=== PATIENT | male | born 1965 | race Hispanic/Latino ===

== ENCOUNTER 2021-10-09 07:32 | Inpatient (IN) | payer SELFPAY ==
[2021-10-09] MEDS ORDERED: niCARdipine 25 MG/10 ML VIAL ONE (07:39)
[2021-10-09 08:03] LABS: #Eosinphils 0.3 thou/uL (0.0-0.7); #Lymphocytes 1.8 thou/uL (1.20-3.40); #Monocytes 0.6 thou/uL (0.11-0.59); %Eosinophils 3.9 % (0.0-10.0); %Lymphocytes 23.8 % (21.0-51.0); %Monocytes 7.3 % (0.0-10.0); Hemoglobin 14.3 g/dL (14.0-18.0); Mean Corpuscular HGB CONC 33.7 g/dL (32.0-36.0); Mean Corpuscular Hemoglobin 29.8 pg (27.0-31.0); Mean Corpuscular Volume 88.4 fL (78.0-98.0); Mean Platelet Volume 6.9 fL (7.4-10.4); Platelet Count 294 thou/uL (130-400); RBC Distribution Width 13.4 % (11.5-14.5); White Blood Cell (WBC) Count 7.6 thou/uL (4.8-10.8)
[2021-10-09 08:15] LABS: PTT 29.4 sec (22.9-36.1)
[2021-10-09 08:18] LABS: ALT (SGPT) 88 U/L (8-55); AST (SGOT) 69 U/L (5-34); Albumin 4.1 g/dL (3.5-5.0); Alkaline Phosphatase 134 U/L (40-110); Anion Gap 15 mmol/L (10-20); BUN (Urea Nitrogen) 14 mg/dL (8.4-25.7); Bilirubin, Total 0.7 mg/dL (0.2-1.2); Calc. Creatinine Clearance 0 mL/min (70-130); Carbon Dioxide 25 mmol/L (22-29); Chloride 101 mmol/L (98-107); Estimated GFR 77; Globulin 3.4 g/dL (2.4-3.5); Glucose 141 mg/dL (70-105); Potassium 3.3 mmol/L (3.5-5.1); Protein, Total 7.5 g/dL (6.0-8.3); Sodium 138 mmol/L (136-145)
[2021-10-09 08:47] LABS: CKMB 2.6 ng/mL (0-6.6)
[2021-10-09] MEDS ORDERED: Labetalol HCl 100 MG/20 ML VIAL SLOW IVP PRN (09:46)
[2021-10-09] MEDS ORDERED: Acetaminophen 650 MG Suppository PR PRN (09:46)
[2021-10-09] MEDS ORDERED: Senokot S 8.6-50 MG TAB PO PRN (09:46)
[2021-10-09] MEDS ORDERED: Dextrose 5% in Water 1,000 ML IV PRN (09:46)
[2021-10-09] MEDS ORDERED: Ondansetron PF 4 MG/2 ML Vial IVP PRN (09:46)
[2021-10-09] MEDS ORDERED: Dextrose 50% Abboject 50 ML SYRINGE SLOW IVP PRN (09:46)
[2021-10-09] MEDS: niCARdipine 25 MG in Sodium Chloride 0.9% 250 ML 250 ML IVPB PRN ×2 (11:42→13:55)
[2021-10-09] MEDS ORDERED: Pantoprazole 40 MG VIAL IVP SCH (11:45)
[2021-10-09 11:58] LABS: Critical Call Chem Troponin I RESULT DECREASING
[2021-10-09 11:59] LABS: Troponin I 0.481 ng/mL (< 0.028)
[2021-10-09] MEDS: HumaLOG 300 UNITS/3 ML VIAL SC PRN ×2 (12:00→17:58)
[2021-10-09 13:20] LABS: Hemoglobin A1c 6.3 % (4.0-6.0)
[2021-10-09] MEDS: Labetalol HCl 100 MG/20 ML VIAL SLOW IVP PRN (14:40)
[2021-10-09 14:44] LABS: Critical Call Chem Troponin I RESULT DECREASING; Troponin I 0.473 ng/mL (< 0.028)
[2021-10-09] MEDS: niCARdipine 50 MG in Sodium Chloride 0.9% 250 ML 230 ML IVPB PRN ×3 (15:31→21:43)
[2021-10-09] MEDS: Morphine 2 MG/ML VIAL SLOW IVP PRN (15:44)
[2021-10-09] MEDS ORDERED: Electrolyte Replacement Protocol FS PRN (15:45)
[2021-10-09 15:46] LABS: Anion Gap 18 mmol/L (10-20); Carbon Dioxide 23 mmol/L (22-29); Chloride 102 mmol/L (98-107); Potassium 3.8 mmol/L (3.5-5.1); Sodium 139 mmol/L (136-145)
[2021-10-09] MEDS: Potassium Chloride 20 MEQ in Premix Bag 1 BAG IVPB SCH ×2 (16:30→17:59)
[2021-10-09] MEDS: Pantoprazole 40 MG VIAL IVP SCH (21:07)
[2021-10-10] MEDS: niCARdipine 50 MG in Sodium Chloride 0.9% 250 ML 230 ML IVPB PRN ×6 (02:25→21:05)
[2021-10-10 04:10] LABS: #Eosinphils 0.2 thou/uL (0.0-0.7); #Lymphocytes 1.6 thou/uL (1.20-3.40); #Monocytes 0.6 thou/uL (0.11-0.59); #Neutrophils 8.9 thou/uL (1.40-6.50); %Basophils 0.2 % (0.0-1.0); %Eosinophils 1.4 % (0.0-10.0); %Lymphocytes 14.3 % (21.0-51.0); %Monocytes 5.2 % (0.0-10.0); Hemoglobin 12.5 g/dL (14.0-18.0); Mean Corpuscular HGB CONC 34.1 g/dL (32.0-36.0); Mean Corpuscular Hemoglobin 30.2 pg (27.0-31.0); Mean Corpuscular Volume 88.8 fL (78.0-98.0); Platelet Count 294 thou/uL (130-400); RBC Distribution Width 13.4 % (11.5-14.5); Red Blood Cell (RBC) Count 4.14 mill/uL (4.70-6.10); White Blood Cell (WBC) Count 11.3 thou/uL (4.8-10.8)
[2021-10-10 04:36] LABS: ALT (SGPT) 72 U/L (8-55); AST (SGOT) 49 U/L (5-34); Albumin 3.7 g/dL (3.5-5.0); Alkaline Phosphatase 111 U/L (40-110); Anion Gap 16 mmol/L (10-20); BUN (Urea Nitrogen) 20 mg/dL (8.4-25.7); Bilirubin, Total 0.6 mg/dL (0.2-1.2); Calc. Creatinine Clearance 137 mL/min (70-130); Calcium 8.7 mg/dL (7.8-10.44); Carbon Dioxide 22 mmol/L (22-29); Cardiac Risk 5.1 (Less than 4.5); Chloride 105 mmol/L (98-107); Cholesterol 178 mg/dl (< 200 Desired); Estimated GFR 77; Globulin 3.1 g/dL (2.4-3.5); Glucose 124 mg/dL (70-105); HDL Cholesterol 35 mg/dL (>60 Neg Risk); LDL Cholesterol, Calculated 120 mg/dL; Potassium 3.3 mmol/L (3.5-5.1); Protein, Total 6.8 g/dL (6.0-8.3); Sodium 140 mmol/L (136-145); Triglycerides 114 mg/dL (Less than 150)
[2021-10-10 05:47] LABS: Magnesium 1.9 mg/dL (1.6-2.6)
[2021-10-10] MEDS ORDERED: Magnesium 2 GM/50 ML(in water) 2 GM in Premix Bag 1 BAG IVPB SCH (08:00)
[2021-10-10] MEDS: Potassium Chloride 20 MEQ in Premix Bag 1 BAG IVPB SCH ×2 (08:13→10:27)
[2021-10-10] MEDS ORDERED: Prevnar 13-Val Conj/PF 0.5 ML SYRINGE IM ONE (09:00)
[2021-10-10] MEDS: Pantoprazole 40 MG VIAL IVP SCH ×2 (09:33→20:35)
[2021-10-10] MEDS ORDERED: Iopamidol-370 76% 500 ML 1 ML ONE (11:29)
[2021-10-10] MEDS: Acetaminophen 325 MG TAB PO PRN (18:02)
[2021-10-10] MEDS: Labetalol HCl 100 MG/20 ML VIAL SLOW IVP PRN (20:35)
[2021-10-11] MEDS: Labetalol HCl 100 MG/20 ML VIAL SLOW IVP PRN ×3 (00:23→21:45)
[2021-10-11] MEDS: niCARdipine 50 MG in Sodium Chloride 0.9% 250 ML 230 ML IVPB PRN ×5 (01:02→22:57)
[2021-10-11 03:48] LABS: #Eosinphils 0.1 thou/uL (0.0-0.7); #Monocytes 0.7 thou/uL (0.11-0.59); #Neutrophils 11.8 thou/uL (1.40-6.50); %Basophils 0.2 % (0.0-1.0); %Eosinophils 0.9 % (0.0-10.0); %Lymphocytes 7.5 % (21.0-51.0); %Monocytes 4.9 % (0.0-10.0); %Neutrophils 86.5 % (42.0-75.0); Hemoglobin 13.3 g/dL (14.0-18.0); Mean Corpuscular HGB CONC 33.6 g/dL (32.0-36.0); Mean Corpuscular Hemoglobin 29.8 pg (27.0-31.0); Mean Corpuscular Volume 88.6 fL (78.0-98.0); Mean Platelet Volume 6.9 fL (7.4-10.4); Platelet Count 320 thou/uL (130-400); RBC Distribution Width 13.5 % (11.5-14.5); Red Blood Cell (RBC) Count 4.46 mill/uL (4.70-6.10); White Blood Cell (WBC) Count 13.6 thou/uL (4.8-10.8)
[2021-10-11 04:08] LABS: Anion Gap 14 mmol/L (10-20); BUN (Urea Nitrogen) 20 mg/dL (8.4-25.7); Calc. Creatinine Clearance 123 mL/min (70-130); Calcium 8.9 mg/dL (7.8-10.44); Carbon Dioxide 21 mmol/L (22-29); Chloride 106 mmol/L (98-107); Estimated GFR 67; Glucose 167 mg/dL (70-105); Magnesium 2.4 mg/dL (1.6-2.6); Potassium 4.2 mmol/L (3.5-5.1); Sodium 137 mmol/L (136-145)
[2021-10-11] MEDS: Carvedilol 6.25 MG TAB PO SCH ×2 (08:11→16:24)
[2021-10-11] MEDS: Pantoprazole 40 MG VIAL IVP SCH ×2 (08:16→20:55)
[2021-10-11] MEDS: Amlodipine 10 MG TAB PO SCH (12:19)
[2021-10-11] MEDS: hydrALAZINE 20 MG/ML VIAL SLOW IVP PRN (16:22)
[2021-10-11] MEDS: Atorvastatin Calcium 40 MG TAB PO SCH (20:55)
[2021-10-12 04:17] LABS: Anion Gap 15 mmol/L (10-20); BUN (Urea Nitrogen) 29 mg/dL (8.4-25.7); Calc. Creatinine Clearance 0 mL/min (70-130); Calcium 8.7 mg/dL (7.8-10.44); Carbon Dioxide 20 mmol/L (22-29); Chloride 106 mmol/L (98-107); Estimated GFR 59; Glucose 133 mg/dL (70-105); Magnesium 2.3 mg/dL (1.6-2.6); Potassium 4.1 mmol/L (3.5-5.1); Sodium 137 mmol/L (136-145)
[2021-10-12] MEDS: niCARdipine 50 MG in Sodium Chloride 0.9% 250 ML 230 ML IVPB PRN ×3 (04:20→19:10)
[2021-10-12] MEDS: Morphine 2 MG/ML VIAL SLOW IVP PRN (04:48)
[2021-10-12] MEDS: Amlodipine 10 MG TAB PO SCH (07:36)
[2021-10-12] MEDS: Pantoprazole 40 MG VIAL IVP SCH ×2 (07:36→20:15)
[2021-10-12] MEDS: Carvedilol 6.25 MG TAB PO SCH ×2 (07:36→18:03)
[2021-10-12] MEDS ORDERED: Carvedilol 6.25 MG TAB PO SCH ×2 (08:00→08:45)
[2021-10-12] MEDS: Labetalol HCl 100 MG/20 ML VIAL SLOW IVP PRN ×4 (08:07→18:17)
[2021-10-12 15:02] LABS: Bacteria/HPF None Seen HPF (None Seen); Bilirubin Negative (Negative); Blood, Urine Negative (Negative); Clarity Clear (Clear); Glucose, Urine (Dipstick) Normal (Negative); Ketone, Urine Negative (Negative); Leukocyte Negative Leu/uL (Negative); Nitrite Negative (Negative); Protein, Urine (Dipstick) 10 mg/dL (Neg-Trace); RBC/HPF 0-3 HPF (0-3); Specific Gravity, Urine 1.026 (1.002-1.036); WBC/HPF 0-3 HPF (0-3); pH, Urine 5.5 (5.0-9.0)
[2021-10-12] MEDS: Atorvastatin Calcium 40 MG TAB PO SCH (20:15)
[2021-10-13] MEDS: niCARdipine 50 MG in Sodium Chloride 0.9% 250 ML 230 ML IVPB PRN ×2 (02:11→07:24)
[2021-10-13] MEDS: Pantoprazole 40 MG VIAL IVP SCH ×2 (07:24→20:32)
[2021-10-13] MEDS: Carvedilol 6.25 MG TAB PO SCH (07:25)
[2021-10-13] MEDS: Amlodipine 10 MG TAB PO SCH (07:25)
[2021-10-13] MEDS: Labetalol HCl 100 MG/20 ML VIAL SLOW IVP PRN ×3 (07:30→14:20)
[2021-10-13] MEDS: hydrALAZINE 25 MG TAB PO SCH ×3 (08:34→20:32)
[2021-10-13] MEDS ORDERED: Furosemide 40 MG/4 ML VIAL SLOW IVP SCH (09:45)
[2021-10-13 11:08] LABS: Phosphorus 3.6 mg/dL (2.3-4.7)
[2021-10-13 11:11] LABS: Anion Gap 13 mmol/L (10-20); BUN (Urea Nitrogen) 32 mg/dL (8.4-25.7); Calc. Creatinine Clearance 123 mL/min (70-130); Calcium 8.4 mg/dL (7.8-10.44); Carbon Dioxide 20 mmol/L (22-29); Chloride 108 mmol/L (98-107); Estimated GFR 63; Glucose 124 mg/dL (70-105); Magnesium 2.4 mg/dL (1.6-2.6); Potassium 4.1 mmol/L (3.5-5.1); Sodium 137 mmol/L (136-145)
[2021-10-13] MEDS: Carvedilol 25 MG TAB PO SCH (16:19)
[2021-10-13] MEDS: hydrALAZINE 20 MG/ML VIAL SLOW IVP PRN (16:19)
[2021-10-13] MEDS: Atorvastatin Calcium 40 MG TAB PO SCH (20:32)
[2021-10-14] MEDS: hydrALAZINE 20 MG/ML VIAL SLOW IVP PRN (03:48)
[2021-10-14 03:52] LABS: #Eosinphils 0.3 thou/uL (0.0-0.7); #Monocytes 0.7 thou/uL (0.11-0.59); %Eosinophils 2.8 % (0.0-10.0); %Lymphocytes 11.5 % (21.0-51.0); %Monocytes 7.7 % (0.0-10.0); %Neutrophils 77.9 % (42.0-75.0); Hemoglobin 11.8 g/dL (14.0-18.0); Mean Corpuscular HGB CONC 33.6 g/dL (32.0-36.0); Mean Corpuscular Hemoglobin 29.9 pg (27.0-31.0); Mean Platelet Volume 7.7 fL (7.4-10.4); Platelet Count 267 thou/uL (130-400); RBC Distribution Width 14.1 % (11.5-14.5); Red Blood Cell (RBC) Count 3.94 mill/uL (4.70-6.10)
[2021-10-14 04:02] LABS: Anion Gap 15 mmol/L (10-20); BUN (Urea Nitrogen) 31 mg/dL (8.4-25.7); Calc. Creatinine Clearance 134 mL/min (70-130); Calcium 8.5 mg/dL (7.8-10.44); Carbon Dioxide 21 mmol/L (22-29); Chloride 108 mmol/L (98-107); Estimated GFR 70; Glucose 114 mg/dL (70-105); Potassium 3.6 mmol/L (3.5-5.1); Sodium 140 mmol/L (136-145)
[2021-10-14] MEDS: niCARdipine 50 MG in Sodium Chloride 0.9% 250 ML 230 ML IVPB PRN ×2 (05:05→09:41)
[2021-10-14] MEDS ORDERED: Enalaprilat Dihydrate 1.25 MG/ML VIAL SLOW IVP SCH (08:30)
[2021-10-14] MEDS: Pantoprazole 40 MG VIAL IVP SCH ×2 (09:26→21:14)
[2021-10-14] MEDS: Carvedilol 25 MG TAB PO SCH ×2 (11:17→21:00)
[2021-10-14] MEDS: hydrALAZINE 25 MG TAB PO SCH ×3 (11:18→21:13)
[2021-10-14] MEDS: Amlodipine 10 MG TAB PO SCH (11:18)
[2021-10-14] MEDS: Enalaprilat Dihydrate 1.25 MG/ML VIAL SLOW IVP SCH ×2 (16:32→22:50)
[2021-10-14] MEDS: Atorvastatin Calcium 40 MG TAB PO SCH (21:12)
[2021-10-15] MEDS: Enalaprilat Dihydrate 1.25 MG/ML VIAL SLOW IVP SCH ×4 (04:06→23:45)
[2021-10-15 04:31] LABS: Anion Gap 14 mmol/L (10-20); BUN (Urea Nitrogen) 26 mg/dL (8.4-25.7); Calc. Creatinine Clearance 151 mL/min (70-130); Calcium 8.8 mg/dL (7.8-10.44); Carbon Dioxide 20 mmol/L (22-29); Chloride 108 mmol/L (98-107); Estimated GFR 81; Glucose 112 mg/dL (70-105); Lipase 95 U/L (8-78); Potassium 3.8 mmol/L (3.5-5.1); Sodium 138 mmol/L (136-145)
[2021-10-15] MEDS: hydrALAZINE 25 MG TAB PO SCH ×4 (08:05→20:56)
[2021-10-15] MEDS: Amlodipine 10 MG TAB PO SCH (08:05)
[2021-10-15] MEDS: Pantoprazole 40 MG VIAL IVP SCH ×2 (08:05→20:57)
[2021-10-15] MEDS: Carvedilol 25 MG TAB PO SCH ×2 (08:05→16:56)
[2021-10-15] MEDS: Atorvastatin Calcium 40 MG TAB PO SCH (20:56)
[2021-10-16 04:15] LABS: Anion Gap 15 mmol/L (10-20); BUN (Urea Nitrogen) 22 mg/dL (8.4-25.7); Calc. Creatinine Clearance 147 mL/min (70-130); Calcium 8.9 mg/dL (7.8-10.44); Carbon Dioxide 21 mmol/L (22-29); Chloride 108 mmol/L (98-107); Estimated GFR 79; Glucose 124 mg/dL (70-105); Sodium 140 mmol/L (136-145)
[2021-10-16] MEDS: Enalaprilat Dihydrate 1.25 MG/ML VIAL SLOW IVP SCH ×4 (04:51→22:00)
[2021-10-16] MEDS: cefTRIAXone\\ROCEPHIN 1 GM in Sodium Chloride 0.9% 100 ML IVPB SCH (04:52)
[2021-10-16 05:10] LABS: #Eosinphils 0.3 thou/uL (0.0-0.7); #Monocytes 0.7 thou/uL (0.11-0.59); #Neutrophils 7.8 thou/uL (1.40-6.50); %Basophils 0.4 % (0.0-1.0); %Eosinophils 2.9 % (0.0-10.0); %Lymphocytes 9.9 % (21.0-51.0); %Monocytes 7.4 % (0.0-10.0); %Neutrophils 79.3 % (42.0-75.0); Hemoglobin 13.5 g/dL (14.0-18.0); Mean Corpuscular Hemoglobin 31.5 pg (27.0-31.0); Mean Platelet Volume 7.5 fL (7.4-10.4); Platelet Count 332 thou/uL (130-400); RBC Distribution Width 13.8 % (11.5-14.5); Red Blood Cell (RBC) Count 4.29 mill/uL (4.70-6.10); White Blood Cell (WBC) Count 9.8 thou/uL (4.8-10.8)
[2021-10-16] MEDS: Carvedilol 25 MG TAB PO SCH ×2 (09:19→16:24)
[2021-10-16] MEDS: hydrALAZINE 25 MG TAB PO SCH ×3 (09:20→21:06)
[2021-10-16] MEDS: Pantoprazole 40 MG VIAL IVP SCH ×2 (09:21→21:07)
[2021-10-16] MEDS: Amlodipine 10 MG TAB PO SCH (10:13)
[2021-10-16] MEDS: Atorvastatin Calcium 40 MG TAB PO SCH (21:06)
[2021-10-17 03:41] LABS: Anion Gap 15 mmol/L (10-20); BUN (Urea Nitrogen) 20 mg/dL (8.4-25.7); Calc. Creatinine Clearance 146 mL/min (70-130); Calcium 8.8 mg/dL (7.8-10.44); Carbon Dioxide 21 mmol/L (22-29); Chloride 106 mmol/L (98-107); Estimated GFR 79; Glucose 123 mg/dL (70-105); Potassium 4.1 mmol/L (3.5-5.1); Sodium 138 mmol/L (136-145)
[2021-10-17] MEDS: Enalaprilat Dihydrate 1.25 MG/ML VIAL SLOW IVP SCH ×4 (04:27→21:34)
[2021-10-17] MEDS: cefTRIAXone\\ROCEPHIN 1 GM in Sodium Chloride 0.9% 100 ML IVPB SCH (04:27)
[2021-10-17] MEDS: hydrALAZINE 25 MG TAB PO SCH ×4 (08:20→20:18)
[2021-10-17] MEDS: Amlodipine 10 MG TAB PO SCH (08:21)
[2021-10-17] MEDS: Pantoprazole 40 MG VIAL IVP SCH ×2 (08:21→20:19)
[2021-10-17] MEDS: Carvedilol 25 MG TAB PO SCH ×2 (08:21→16:08)
[2021-10-17] MEDS: Atorvastatin Calcium 40 MG TAB PO SCH (20:18)
[2021-10-18 04:15] LABS: Anion Gap 15 mmol/L (10-20); BUN (Urea Nitrogen) 18 mg/dL (8.4-25.7); Calc. Creatinine Clearance 171 mL/min (70-130); Carbon Dioxide 20 mmol/L (22-29); Chloride 105 mmol/L (98-107); Estimated GFR 96; Glucose 110 mg/dL (70-105); Potassium 4.4 mmol/L (3.5-5.1); Sodium 136 mmol/L (136-145)
[2021-10-18] MEDS: cefTRIAXone\\ROCEPHIN 1 GM in Sodium Chloride 0.9% 100 ML IVPB SCH (04:28)
[2021-10-18] MEDS: hydrALAZINE 20 MG/ML VIAL SLOW IVP PRN (04:29)
[2021-10-18] MEDS: Enalaprilat Dihydrate 1.25 MG/ML VIAL SLOW IVP SCH ×4 (04:34→22:43)
[2021-10-18] MEDS: Labetalol HCl 100 MG/20 ML VIAL SLOW IVP PRN (05:40)
[2021-10-18] MEDS: Pantoprazole 40 MG VIAL IVP SCH ×2 (09:01→20:06)
[2021-10-18] MEDS: Carvedilol 25 MG TAB PO SCH ×2 (09:01→16:38)
[2021-10-18] MEDS: Amlodipine 10 MG TAB PO SCH (09:01)
[2021-10-18] MEDS: hydrALAZINE 25 MG TAB PO SCH ×4 (09:01→20:05)
[2021-10-18] MEDS ORDERED: CEFAZOLIN 2 GM VIAL ONE (13:27)
[2021-10-18] MEDS ORDERED: Sodium Chloride 0.9% 100 ML ONE (13:27)
[2021-10-18] MEDS ORDERED: Lidocaine 1% MPF 2 ML VIAL ONE (13:31)
[2021-10-18] MEDS ORDERED: PROPOFOL 200 MG/20 ML VIAL ONE (13:31)
[2021-10-18] MEDS ORDERED: Ondansetron HCl/PF 4 MG/2 ML Vial IVP PRN (14:11)
[2021-10-18] MEDS: Atorvastatin Calcium 40 MG TAB PO SCH (20:05)
[2021-10-19] MEDS: cefTRIAXone\\ROCEPHIN 1 GM in Sodium Chloride 0.9% 100 ML IVPB SCH (04:26)
[2021-10-19] MEDS: Enalaprilat Dihydrate 1.25 MG/ML VIAL SLOW IVP SCH ×4 (04:27→22:46)
[2021-10-19 04:45] LABS: Anion Gap 17 mmol/L (10-20); BUN (Urea Nitrogen) 20 mg/dL (8.4-25.7); Calc. Creatinine Clearance 167 mL/min (70-130); Carbon Dioxide 21 mmol/L (22-29); Chloride 104 mmol/L (98-107); Estimated GFR 92; Glucose 116 mg/dL (70-105); Potassium 4.5 mmol/L (3.5-5.1); Sodium 137 mmol/L (136-145)
[2021-10-19] MEDS: hydrALAZINE 25 MG TAB PO SCH ×4 (09:45→20:30)
[2021-10-19] MEDS: Carvedilol 25 MG TAB PO SCH ×2 (09:45→16:40)
[2021-10-19] MEDS: Amlodipine 10 MG TAB PO SCH (09:45)
[2021-10-19] MEDS: Pantoprazole 40 MG VIAL IVP SCH ×2 (09:45→20:31)
[2021-10-19] MEDS: Atorvastatin Calcium 40 MG TAB PO SCH (20:31)
[2021-10-20] MEDS: cefTRIAXone\\ROCEPHIN 1 GM in Sodium Chloride 0.9% 100 ML IVPB SCH (03:27)
[2021-10-20] MEDS: Enalaprilat Dihydrate 1.25 MG/ML VIAL SLOW IVP SCH ×3 (03:28→14:02)
[2021-10-20 03:53] LABS: Anion Gap 18 mmol/L (10-20); BUN (Urea Nitrogen) 23 mg/dL (8.4-25.7); Calc. Creatinine Clearance 137 mL/min (70-130); Calcium 8.8 mg/dL (7.8-10.44); Carbon Dioxide 18 mmol/L (22-29); Chloride 104 mmol/L (98-107); Estimated GFR 80; Glucose 111 mg/dL (70-105); Potassium 4.7 mmol/L (3.5-5.1); Sodium 135 mmol/L (136-145)
[2021-10-20] MEDS: Amlodipine 10 MG TAB PO SCH (08:29)
[2021-10-20] MEDS: Carvedilol 25 MG TAB PO SCH ×2 (08:29→17:45)
[2021-10-20] MEDS: hydrALAZINE 25 MG TAB PO SCH ×4 (08:29→20:06)
[2021-10-20] MEDS: Pantoprazole 40 MG VIAL IVP SCH (08:29)
[2021-10-20] MEDS: Atorvastatin Calcium 40 MG TAB PO SCH (20:06)
[2021-10-20] MEDS: Lisinopril 20 MG TAB PO SCH (20:06)
[2021-10-20] MEDS: Acetaminophen 325 MG TAB PO PRN (20:12)
[2021-10-21] MEDS: cefTRIAXone\\ROCEPHIN 1 GM in Sodium Chloride 0.9% 100 ML IVPB SCH (03:16)
[2021-10-21 04:09] LABS: Anion Gap 14 mmol/L (10-20); BUN (Urea Nitrogen) 23 mg/dL (8.4-25.7); Calc. Creatinine Clearance 144 mL/min (70-130); Carbon Dioxide 22 mmol/L (22-29); Chloride 102 mmol/L (98-107); Estimated GFR 81; Glucose 118 mg/dL (70-105); Potassium 4.3 mmol/L (3.5-5.1); Sodium 134 mmol/L (136-145)
[2021-10-21] MEDS: hydrALAZINE 20 MG/ML VIAL SLOW IVP PRN (05:31)
[2021-10-21] MEDS: Lansoprazole 3 MG/ML ORAL SUSPENSION PER TUBE SCH (08:41)
[2021-10-21] MEDS: hydrALAZINE 25 MG TAB PO SCH ×4 (08:41→21:58)
[2021-10-21] MEDS: Carvedilol 25 MG TAB PO SCH ×2 (08:41→17:41)
[2021-10-21] MEDS: Amlodipine 10 MG TAB PO SCH (08:43)
[2021-10-21] MEDS: Lisinopril 20 MG TAB PO SCH (21:58)
[2021-10-21] MEDS: Atorvastatin Calcium 40 MG TAB PO SCH (21:58)
[2021-10-22 06:34] LABS: Anion Gap 16 mmol/L (10-20); BUN (Urea Nitrogen) 23 mg/dL (8.4-25.7); Calc. Creatinine Clearance 153 mL/min (70-130); Calcium 9.3 mg/dL (7.8-10.44); Carbon Dioxide 23 mmol/L (22-29); Chloride 102 mmol/L (98-107); Estimated GFR 88; Glucose 113 mg/dL (70-105); Potassium 4.3 mmol/L (3.5-5.1); Sodium 137 mmol/L (136-145)
[2021-10-22] MEDS: hydrALAZINE 25 MG TAB PO SCH ×4 (08:35→20:02)
[2021-10-22] MEDS: Carvedilol 25 MG TAB PO SCH ×2 (08:35→17:38)
[2021-10-22] MEDS: Lansoprazole 3 MG/ML ORAL SUSPENSION PER TUBE SCH (08:36)
[2021-10-22] MEDS: Amlodipine 10 MG TAB PO SCH (09:52)
[2021-10-22] MEDS: Atorvastatin Calcium 40 MG TAB PO SCH (20:01)
[2021-10-22] MEDS: Lisinopril 20 MG TAB PO SCH (20:03)
[2021-10-23 06:29] LABS: Anion Gap 16 mmol/L (10-20); BUN (Urea Nitrogen) 25 mg/dL (8.4-25.7); Calc. Creatinine Clearance 132 mL/min (70-130); Calcium 9.1 mg/dL (7.8-10.44); Carbon Dioxide 23 mmol/L (22-29); Chloride 103 mmol/L (98-107); Estimated GFR 78; Glucose 118 mg/dL (70-105); Potassium 4.6 mmol/L (3.5-5.1); Sodium 137 mmol/L (136-145)
[2021-10-23] MEDS: Lansoprazole 3 MG/ML ORAL SUSPENSION PER TUBE SCH (08:56)
[2021-10-23] MEDS: hydrALAZINE 25 MG TAB PO SCH ×4 (08:56→21:36)
[2021-10-23] MEDS: Carvedilol 25 MG TAB PO SCH ×2 (08:57→17:50)
[2021-10-23] MEDS: Amlodipine 10 MG TAB PO SCH (08:57)
[2021-10-23] MEDS: Lisinopril 20 MG TAB PO SCH (21:36)
[2021-10-23] MEDS: Atorvastatin Calcium 40 MG TAB PO SCH (21:36)
[2021-10-24 06:16] LABS: #Eosinphils 0.4 thou/uL (0.0-0.7); #Monocytes 0.6 thou/uL (0.11-0.59); #Neutrophils 7.5 thou/uL (1.40-6.50); %Basophils 0.3 % (0.0-1.0); %Eosinophils 3.7 % (0.0-10.0); %Lymphocytes 10.9 % (21.0-51.0); %Monocytes 6.4 % (0.0-10.0); %Neutrophils 78.7 % (42.0-75.0); Hemoglobin 13.3 g/dL (14.0-18.0); Mean Corpuscular HGB CONC 33.6 g/dL (32.0-36.0); Mean Corpuscular Hemoglobin 30.4 pg (27.0-31.0); Mean Corpuscular Volume 90.5 fL (78.0-98.0); Mean Platelet Volume 7.7 fL (7.4-10.4); Platelet Count 345 thou/uL (130-400); RBC Distribution Width 13.7 % (11.5-14.5); White Blood Cell (WBC) Count 9.5 thou/uL (4.8-10.8)
[2021-10-24 06:37] LABS: Anion Gap 17 mmol/L (10-20); BUN (Urea Nitrogen) 21 mg/dL (8.4-25.7); Calc. Creatinine Clearance 160 mL/min (70-130); Calcium 9.1 mg/dL (7.8-10.44); Carbon Dioxide 22 mmol/L (22-29); Chloride 104 mmol/L (98-107); Estimated GFR 98; Glucose 108 mg/dL (70-105); Potassium 4.5 mmol/L (3.5-5.1); Sodium 138 mmol/L (136-145)
[2021-10-24] MEDS: Lansoprazole 3 MG/ML ORAL SUSPENSION PER TUBE SCH (09:20)
[2021-10-24] MEDS: hydrALAZINE 25 MG TAB PO SCH ×4 (09:21→22:05)
[2021-10-24] MEDS: Carvedilol 25 MG TAB PO SCH ×2 (09:21→18:44)
[2021-10-24] MEDS: Amlodipine 10 MG TAB PO SCH (09:23)
[2021-10-24] MEDS: Atorvastatin Calcium 40 MG TAB PO SCH (22:04)
[2021-10-24] MEDS: Lisinopril 20 MG TAB PO SCH (22:04)
[2021-10-25 06:07] LABS: Anion Gap 15 mmol/L (10-20); BUN (Urea Nitrogen) 22 mg/dL (8.4-25.7); Calc. Creatinine Clearance 140 mL/min (70-130); Calcium 9.2 mg/dL (7.8-10.44); Carbon Dioxide 25 mmol/L (22-29); Chloride 102 mmol/L (98-107); Estimated GFR 84; Glucose 109 mg/dL (70-105); Potassium 4.7 mmol/L (3.5-5.1); Sodium 137 mmol/L (136-145)
[2021-10-25] MEDS: Carvedilol 25 MG TAB PO SCH ×2 (10:05→19:57)
[2021-10-25] MEDS: Lansoprazole 3 MG/ML ORAL SUSPENSION PER TUBE SCH (10:05)
[2021-10-25] MEDS: hydrALAZINE 25 MG TAB PO SCH ×4 (10:05→21:30)
[2021-10-25] MEDS: Aspirin Chewable 81 MG TAB PO SCH (10:05)
[2021-10-25] MEDS: Amlodipine 10 MG TAB PO SCH (10:08)
[2021-10-25] MEDS: Lisinopril 20 MG TAB PO SCH (21:30)
[2021-10-25] MEDS: Atorvastatin Calcium 40 MG TAB PO SCH (21:30)
[2021-10-26 06:23] LABS: BUN (Urea Nitrogen) 24 mg/dL (8.4-25.7); Calc. Creatinine Clearance 138 mL/min (70-130); Calcium 9.4 mg/dL (7.8-10.44); Carbon Dioxide 23 mmol/L (22-29); Chloride 102 mmol/L (98-107); Estimated GFR 82; Glucose 99 mg/dL (70-105); Potassium 4.4 mmol/L (3.5-5.1); Sodium 137 mmol/L (136-145)
[2021-10-26 06:40] LABS: Anion Gap 16 mmol/L (10-20)
[2021-10-26] MEDS: Carvedilol 25 MG TAB PO SCH ×2 (09:52→18:23)
[2021-10-26] MEDS: Aspirin Chewable 81 MG TAB PO SCH (09:53)
[2021-10-26] MEDS: Lansoprazole 3 MG/ML ORAL SUSPENSION PER TUBE SCH (09:53)
[2021-10-26] MEDS: hydrALAZINE 25 MG TAB PO SCH ×4 (09:53→21:23)
[2021-10-26] MEDS: Amlodipine 10 MG TAB PO SCH (09:53)
[2021-10-26 11:42] VITALS: BMI 43.7
[2021-10-26] MEDS: Lisinopril 20 MG TAB PO SCH (21:23)
[2021-10-26] MEDS: Atorvastatin Calcium 40 MG TAB PO SCH (21:23)
[2021-10-27 06:50] LABS: Anion Gap 15 mmol/L (10-20); BUN (Urea Nitrogen) 22 mg/dL (8.4-25.7); Calc. Creatinine Clearance 144 mL/min (70-130); Calcium 9.4 mg/dL (7.8-10.44); Carbon Dioxide 24 mmol/L (22-29); Chloride 102 mmol/L (98-107); Estimated GFR 87; Glucose 115 mg/dL (70-105); Potassium 4.5 mmol/L (3.5-5.1); Sodium 136 mmol/L (136-145)
[2021-10-27] MEDS: Aspirin Chewable 81 MG TAB PO SCH (10:19)
[2021-10-27] MEDS: hydrALAZINE 25 MG TAB PO SCH ×3 (10:19→17:21)
[2021-10-27] MEDS: Lansoprazole 3 MG/ML ORAL SUSPENSION PER TUBE SCH (10:20)
[2021-10-27] MEDS: Carvedilol 25 MG TAB PO SCH ×2 (10:20→17:21)
[2021-10-27] MEDS: Amlodipine 10 MG TAB PO SCH (10:22)
[2021-10-27 16:04] VITALS: BP 130/77; TEMP 97.9
== END 2021-10-27 18:06 | disposition home or self-care (01) | DRG 64 ==
LOC: ERS 07:32 → CCU 09:04 → IMCU/EMU 10-18 06:47 → SURG A 10-21 19:36
PROVIDERS: ADMIT Internal Medicine; ATTEND Internal Medicine
PROC: 5A0945A Assistance with Respiratory Ventilation, 24-96 Consecutive Hours, High Flow/Velocity Cannula (ICD-10-PCS; 2021-10-13)
PROC: 5A09357 Assistance with Respiratory Ventilation, Less than 24 Consecutive Hours, Continuous Positive Airway Pressure (ICD-10-PCS; 2021-10-17)
PROC: 0DH63UZ Insertion of Feeding Device into Stomach, Percutaneous Approach (ICD-10-PCS; principal; 2021-10-18)
DX: I63.531 Cerebral infarction due to unspecified occlusion or stenosis of right posterior cerebral artery (principal); Z20.822 Contact with and (suspected) exposure to COVID-19; R29.714 NIHSS score 14; I21.A1 Myocardial infarction type 2; I61.3 Nontraumatic intracerebral hemorrhage in brain stem; J96.01 Acute respiratory failure with hypoxia; G81.91 Hemiplegia, unspecified affecting right dominant side; Z68.41 Body mass index [BMI] 40.0-44.9, adult; I16.1 Hypertensive emergency; N17.9 Acute kidney failure, unspecified; L03.114 Cellulitis of left upper limb; R47.01 Aphasia; R13.12 Dysphagia, oropharyngeal phase; I10 Essential (primary) hypertension; R47.1 Dysarthria and anarthria; E88.81 Metabolic syndrome and other insulin resistance; R47.81 Slurred speech; R29.810 Facial weakness; E87.6 Hypokalemia; G47.33 Obstructive sleep apnea (adult) (pediatric); E78.5 Hyperlipidemia, unspecified; I51.89 Other ill-defined heart diseases; R74.01 Elevation of levels of liver transaminase levels; K75.81 Nonalcoholic steatohepatitis (NASH); Z82.49 Family history of ischemic heart disease and other diseases of the circulatory system
CPT/HCPCS: 36415; 36416; 70450; 70496; 71045; 74018; 80048; 80053; 80061; 81001; 82553; 83036; 83690; 83735; 84100; 84484; 85025; 85610; 85730; 93005; 93306; 94660; 94760; 95712; 95819; 95957; 96374; C9113; J0360; J0690; J0696; J1815; J1940; J2270; J2704; J3475; J3480; J3490; J7050; Q9967; U0003; U0005